=== PATIENT | female | born 1980 | race Caucasian/White ===

== ENCOUNTER 2018-06-12 20:23 | Emergency (ER) | payer MEDICAID, SELFPAY ==
[2018-06-12 20:24] VITALS: BP 150/97; PULSE 106; RESP 22; TEMP 36.9; O2SAT 95; BMI 33.2
[2018-06-12] MEDS: 0.9% Normal Saline 1,000 ML 1000 ML IV (20:54)
[2018-06-12] MEDS: Ketorolac 30 MG/ML Syringe IV (20:54)
[2018-06-12 21:06] LABS: Absolute Lymphocyte Count 1.75 X10^3/ul (0.83-4.51); Absolute Neutrophil Count 3.8 X10^3/uL (2.0-7.7); Basophil# 0.02 X10^3/uL; Basophil% 0.3 % (0-1); Eosinophil# 0.05 X10^3/uL; Eosinophils% 0.8 % (0-5); Hematocrit 33.5 % (37-47); Hemoglobin 11.4 g/dl (12.0-15.0); Lymphocyte # 1.75 X10^3/ul (4.0); Lymphocyte % 29.7 % (19-41); Mean Corpuscular Hgb 29.9 pg (27.0-32.0); Mean Corpuscular Volume 87.9 fL (81-99); Mean Platelet Vol. 9.1 fl (6.2-12.0); Monocyte# 0.22 X10^3/uL; Monocyte% 3.7 % (0-10); Neutrophil # 3.83 X10^3/uL (2.7-7.7); Platelet Count 254 K/mm3 (150-450); RBC Distribution Width CV 12.4 % (11.6-14.6); RBC Distribution Width SD 38.6 fl (35.1-43.9); Red Blood Count 3.81 M/mm3 (4.2-5.4); White Blood Count 5.9 K/mm3 (4.4-11.0)
[2018-06-12 21:07] LABS: POSITIVE COUNT NO; POSITIVE DIFFERENTIAL NO; POSITIVE MORPHOLOGY NO
[2018-06-12 21:16] LABS: Anion Gap 8 (5-15); BUN 16 mg/dL (7-18); BUN/Creat Ratio 16.6 RATIO (10-20); Calcium,Total 9.4 mg/dL (8.5-10.1); Chloride 105 mmol/L (98-107); Creatinine, Serum 0.96 mg/dL (0.55-1.02); EST Glomerular Filtration Rate 70 mL/min (>60); Est Glom Filt Rate - Afr Amer 84 mL/min (>60); Estimated Creatinine Clearance 69.96 ml/min; Glucose 102 mg/dL (74-106); Potassium 3.9 mmol/L (3.5-5.1); Sodium Level 141 mmol/L (136-145)
--- NOTE | 2018-06-12 21:19 | ED.VISSUMM ---
- ER Visit Summary Date of Service: 06/12/18 Chief Complaint: Left flank pain History of Present Illness: The patient is a 37 F who presents with left flank pain that began today. Patient states the pain is localized to the left flank area. Patient denies any radiation of the pain. Patient admits to some nausea but denies any vomiting. Patient denies any dysuria or hematuria. Patient states nothing seems to make the pain better or worse. Patient does admit to some shortness of breath due to the pain. Patient denies any chest pain. Patient denies any diarrhea or constipation. Patient denies any abnormal vaginal bleeding or discharge. Physical Examination: Vital signs are stable. Patient is afebrile. Patient is in no acute distress. Oral mucosa is pink and moist. Neck is supple. Trachea is midline. There is no JVD noted. Heart was regular rate and rhythm. Lungs are clear and equal bilateral. There is good respiratory effort noted. Abdomen is soft. Bowel sounds are normal. There is some left flank tenderness and left CVA tenderness. There is no rebound or guarding noted. Cranial nerves II through XII are intact. There are no focal motor or sensory deficits noted. The remaining physical exam is within normal limits. Test Results: CBC, basic metabolic profile, and urinalysis were obtained. There were greater than 100 red blood cells with occult blood of 250. CT scan of the flank was obtained. There is a 2 mm no stone of the left distal ureter with mild hydronephrosis and hydroureter. Emergency Department Course and Treatment: She was given IV fluids and Toradol here. Patient felt better on reevaluation. Patient was instructed to follow-up with her primary care physician in 5-7 days. Patient was instructed to drink plenty of fluids. Patient understood and was agreeable with the plan. All questions were answered. Disposition: Discharge home Impression: Left ureteral calculus This note was generated with eJamming dictation software. It may contain incorrect words, spelling, and punctuation that were not noted in review of the chart prior to signing ED Disposition - Plan for ED Patient: Disposition: Home or Assisted Living Chief Complaint: Flank Pain Diagnosis: Left ureteral calculus Instructions: ED Stone Renal W Colic Prescriptions: Naproxen [Naprosyn] 500 mg PO BID PRN #20 tab Referrals: Care Physician,No Primary [Primary Care Provider] -
[2018-06-12 21:39] LABS: Color, Urine Yellow (Yellow); Glucose, Dipstick Normal (Normal); Ketone-Dipstick Negative (Negative); Leukocyte Esterase-Dipstick 25 /ul (Negative); Nitrite-Dipstick Negative (Negative); Occult Blood-Urine 250 /ul (Negative); Protein-Dipstick 30 mg/dl (Negative); Urine Bilirubin Dipstick Negative (Negative); Urine Clarity Clear (Clear); Urine Urobilinogen Normal (Normal)
[2018-06-12 21:40] LABS: Internal QC Validated? YES +Cl - CLEAR BKGD
[2018-06-12 21:41] LABS: Pregnancy, Urine Negative Negative
[2018-06-12 21:46] LABS: Bacteria 1+ /hpf (None Seen); Red Blood Cells-Urine > 100 SEEN /hpf (0-5); Squamous Epithelial Cells - UA 5-10 SEEN /hpf (5-10); White Blood Cells 5-10 SEEN /hpf (0-5)
[2018-06-12 21:47] LABS: Mucous, Urine 1+ /hpf (<or=2+)
[2018-06-12] MEDS: Ibuprofen 600 MG Tablet PO (22:22)
[2018-06-12 23:10] VITALS: BP 129/73; PULSE 64; RESP 15; O2SAT 98
--- NOTE | 2018-06-12 23:10 | ED.RN ---
pt given written and verbal discharge instructions. pt given and educated on strainer use and home going prescriptions. pt denies any further questions and dresses self. this rn contacted [facility] service at pt request. pt in waiting room to await a ride.
== END 2018-06-12 23:14 | disposition home or self-care (01) ==
PROVIDERS: Emergency Provider Emergency Medicine
DX: N13.2 Hydronephrosis with renal and ureteral calculous obstruction (principal)
CPT/HCPCS: 74176; 80048; 81001; 81025; 85025; 96361; 96374; 99284; J7030; A4216

== ENCOUNTER 2019-01-07 19:09 | Emergency (ER) | payer MEDICAID, SELFPAY ==
[2018-08-31 08:45] VITALS: BMI 33.0
[2019-01-07 19:10] VITALS: BP 156/90; PULSE 93; RESP 16; TEMP 36.5; O2SAT 99; BMI 33.3
--- NOTE | 2019-01-07 19:33 | ED.VISSUMM ---
- ER Visit Summary Date of Service: 01/07/19 Chief Complaint: [] Right paracervical neck pain rating the shoulder for years History of Present Illness: The patient is a 38 F [] reports in 2008 she suffered a neck injury possibly neck fracture she I think was describing something like a halo She is having a pain from the right paracervical neck into the right shoulder, the pain seems to be worse her last few days there is no numbness weakness paresthesias other problems, there is been not recurrent trauma, no symptoms to the left, she she has been taking Tylenol for the pain presents for evaluation Physical Examination: [] General, no distress resting comfortably HEENT is generally unremarkable The neck is supple no adenopathy has a vague pain to the right paracervical area there is really no midline pain she has full range of motion of her neck Cardiovascular, regular rate and rhythm Lungs, clear bilateral Abdomen, soft nontender Extremities, no clubbing cyanosis or edema motion of the right upper extremity the pain goes from the neck across the anterior shoulder into the deltoid region her hand function is normal pulses are normal strength appears normal sensation appears normal Neurologic, awake alert answering questions appropriately moving all 4 extremities Test Results: [] Emergency Department Course and Treatment: [] This is a long-standing condition for the patient and I have explained this to her explained the concept of arthritis other conditions affecting the cervical spine and the need to follow-up with spine surgery I recommend she follow-up with this surgeons who she saw for her injury in 2008 she is not sure if she can find those referrals, she was started on Naprosyn 500 twice daily she will be referred to [place] [facility] and/or [facility] spine service in [facility] for change in symptoms Treatment Plan: [] Disposition: [] Home stable Impression: [] Paracervical neck pain acute recurrent 2008 This note was generated with Topio dictation software. It may contain incorrect words, spelling, and punctuation that were not noted in review of the chart prior to signing ED Disposition - Plan for ED Patient: Referrals: [facility] Doctor,Out of [Primary Care Provider] -
--- NOTE | 2019-01-07 19:37 | ED.DCSUM_ITS ---
- ER Visit Summary Date of Service: 01/07/19 Chief Complaint: [] Right paracervical neck pain rating the shoulder for years History of Present Illness: The patient is a 38 F [] reports in 2008 she suffered a neck injury possibly neck fracture she I think was describing something like a halo She is having a pain from the right paracervical neck into the right shoulder, the pain seems to be worse her last few days there is no numbness weakness paresthesias other problems, there is been not recurrent trauma, no symptoms to the left, she she has been taking Tylenol for the pain presents for evaluation Physical Examination: [] General, no distress resting comfortably HEENT is generally unremarkable The neck is supple no adenopathy has a vague pain to the right paracervical area there is really no midline pain she has full range of motion of her neck Cardiovascular, regular rate and rhythm Lungs, clear bilateral Abdomen, soft nontender Extremities, no clubbing cyanosis or edema motion of the right upper extremity the pain goes from the neck across the anterior shoulder into the deltoid region her hand function is normal pulses are normal strength appears normal sensation appears normal Neurologic, awake alert answering questions appropriately moving all 4 extremities Test Results: [] Emergency Department Course and Treatment: [] This is a long-standing condition for the patient and I have explained this to her explained the concept of arthritis other conditions affecting the cervical spine and the need to follow- up with spine surgery I recommend she follow-up with this surgeons who she saw for her injury in 2008 she is not sure if she can find those referrals, she was started on Naprosyn 500 twice daily she will be referred to [place] [facility] and/or [facility] spine service in [facility] for change in symptoms Treatment Plan: [] Disposition: [] Home stable Impression: [] Paracervical neck pain acute recurrent 2008 This note was generated with Ext[employer] Reach (formerly [employer]) dictation software. It may contain incorrect words, spelling, and punctuation that were not noted in review of the chart prior to signing ED Disposition - Plan for ED Patient: Referrals: [facility] Doctor,Out of [Primary Care Provider] -
--- NOTE | 2019-01-07 19:37 | ED.DEP ---
ED Disposition - Plan for ED Patient: Instructions: ED Cervical Radiculopathy Prescriptions: Naproxen [Naprosyn] 500 mg PO BID PRN #20 tab Referrals: [facility] Doctor,Out of [Primary Care Provider] - Juan Rey MD [STAFF PHYSICIAN] - Additional Instructions: You might also want to consider following up with [facility] orthopedics spine service in [facility], or [facility] spine service
--- NOTE | 2019-01-07 19:39 | DCINST.ED_ITS ---
ED Disposition - Plan for ED Patient: Instructions: ED Cervical Radiculopathy Prescriptions: Naproxen [Naprosyn] 500 mg PO BID PRN #20 tab Referrals: [facility] Doctor,Out of [Primary Care Provider] - Juan Rey MD [STAFF PHYSICIAN] - Additional Instructions: You might also want to consider following up with [facility] orthopedics spine service in [facility], or [facility] spine service
[2019-01-07 19:53] VITALS: BP 156/90; PULSE 93; RESP 16; O2SAT 99
== END 2019-01-07 19:54 | disposition home or self-care (01) ==
PROVIDERS: Emergency Provider Emergency Medicine
DX: M54.12 Radiculopathy, cervical region (principal)
CPT/HCPCS: 99282

== ENCOUNTER 2019-11-17 10:30 | Emergency (ER) | payer MEDICAID, SELFPAY ==
[2019-11-17 10:32] VITALS: BP 158/114; PULSE 100; RESP 17; TEMP 37.4; O2SAT 97; BMI 33.1
--- NOTE | 2019-11-17 10:47 | ED.VIS.GEN ---
History of Present Illness Chief Complaint: Headache Informant: Patient, Family Onset: Days - 3 Timing: Continuous Current Severity: Moderate Maximum Severity: Moderate Narrative: Patient presents with a headache that is chronic and recurrent for the past 3 days. She has a history of migraines and this feels the same as gradual onset. She also has myalgias and generalized weakness however she is able to ambulate. She tells me she has no reported fevers although she has a low-grade temperature in the ED. She denies any difficulty breathing, she has upper respiratory congestion and a cough that is nonproductive. She has no chest pain she has no dysuria or hematuria she has no flank pain she has no rash she has no neck pain or stiffness. Past Medical History - Allergies and Home Meds Allergies/Adverse Reactions: Allergies latex Allergy (Verified 11/17/19 10:31) Hives hydrocodone bitartrate [From Vicodin] Adverse Reaction (Verified 11/17/19 10:31) Nausea Primary Care Physician: Care Physician,No Primary [Primary Care Provider] - Past Medical History: - - Hypertension Lives: With Family Smoking Status: Former smoker Review of Systems All systems negative except as indicated General: Denies: Sweats Eyes: Reports: - - She does report photophobia which is normal with her migraines. Denies: Visual changes - bilaterally ENT: Reports: Rhinorrhea Cardiovascular: Denies: Chest pain, Palpitations Respiratory: Reports: Cough. Denies: Dyspnea, Sputum Gastrointestinal: Reports: Nausea. Denies: Abdominal pain, Vomiting, Diarrhea Genitourinary: Denies: Dysuria, Hematuria Musculoskeletal: Reports: Myalgias. Denies: Neck pain, Swelling, Extremity Pain Skin: Denies: Rash Neurological: Reports: Headache, - - No focal weakness Hematologic: Denies: Easy bruising Physical Exam Vital Signs/Narrative: Vital Signs Temp Pulse Resp BP Pulse Ox 11/17/19 10:32 99.4 F H 100 17 158/114 H 97 General: Well nourished, Well developed, - - She appears in some distress Head: Normocephalic, Atraumatic Eyes: Perrl ENT: Moist mucous membranes, - - Some upper airway congestion and rhinorrhea. Negative for: Sinus tenderness Neck: Supple Cardiovascular: Regular rhythm, No murmurs, Tachycardia Respiratory: No distress, CTA bilaterally Abdomen: Soft, Nontender Back: Nontender, Normal Inspection. Negative for: CVA tenderness Extremities: Nontender, No edema. Negative for: Tenderness, Edema Skin: Normal color, No rash Neurological: Alert, Oriented x3, Cranial nerves II-XII grossly intact, Normal Strength, Normal Sensation. Negative for: Confused, Disoriented Psychological: - - Slightly anxious Diagnostic/Tx/Re-eval - Medical Decision Making Patient has a normal ED work-up she is given IV fluids, Reglan Toradol and Benadryl she is significantly improved. She will be discharged with reassurance ED Disposition - Plan for ED Patient: Disposition: Home or Assisted Living Diagnosis: Headache Instructions: HEADACHE, Unspecified Referrals: Care Physician,No Primary [Primary Care Provider] - 3-5 Days
[2019-11-17] MEDS: 0.9% Normal Saline 1,000 ML 999 ML IV (11:01)
[2019-11-17] MEDS: DiphenhydrAMINE 50 MG/ML Syringe 25 MG IV (11:02)
[2019-11-17] MEDS: Ketorolac 30 MG/ML Syringe IV (11:03)
[2019-11-17] MEDS: Metoclopramide 10 MG/2 ML Vial IV (11:04)
[2019-11-17 11:09] LABS: Absolute Lymphocyte Count 0.97 X10^3/uL (0.83-4.51); Absolute Neutrophil Count 3.4 X10^3/uL (2.0-7.7); Basophil# 0.01 X10^3/uL; Basophil% 0.2 % (0-1); Eosinophil# 0.05 X10^3/uL; Eosinophils% 1.1 % (0-5); Hematocrit 33.6 % (37-47); Hemoglobin 10.4 g/dL (12.0-15.0); Lymphocyte # 0.97 X10^3/ul (4.0); Lymphocyte % 20.7 % (19-41); Mean Corpuscular Hgb 25.8 pg (27.0-32.0); Mean Corpuscular Volume 83.4 fL (81-99); Mean Platelet Vol. 9.5 fl (6.2-12.0); Monocyte# 0.24 X10^3/uL; Monocyte% 5.1 % (0-10); NRBC Flagged by Analyzer 0 % (0-5); Neutrophil # 3.37 X10^3/uL (2.7-7.7); Platelet Count 249 K/mm3 (150-450); RBC Distribution Width CV 12.9 % (11.6-14.6); RBC Distribution Width SD 38.8 fl (35.1-43.9); Red Blood Count 4.03 M/mm3 (4.2-5.4); White Blood Count 4.7 K/mm3 (4.4-11.0)
[2019-11-17 11:28] LABS: ALB/GLOB Ratio 1.1 RATIO (0.9-2.4); AST(SGOT) 12 U/L (15-37); Alanine Aminotransfer ALT/SGPT 36 U/L (13-56); Alkaline Phosphatase 68 U/L (45-117); Anion Gap 5 (5-15); BUN 12 mg/dL (7-18); BUN/Creat Ratio 12.2 RATIO (10-20); Calcium,Total 8.8 mg/dL (8.5-10.1); Chloride 107 mmol/L (98-107); Creatinine, Serum 0.99 mg/dL (0.55-1.02); EST Glomerular Filtration Rate 67 mL/min (>60); Est Glom Filt Rate - Afr Amer 81 mL/min (>60); Estimated Creatinine Clearance 67.19 ml/min; Globulin 3.6 g/dL (2.2-4.2); Glucose 91 mg/dL (74-106); Potassium 3.9 mmol/L (3.5-5.1); Protein, Total 7.6 g/dL (6.4-8.2); Sodium Level 140 mmol/L (136-145)
[2019-11-17 11:33] LABS: CPK Total, Creatine Kinase 107 U/L (26-192)
[2019-11-17 11:52] LABS: Mucous, Urine 0 SEEN /hpf (<or=2+); White Blood Cells 0 SEEN /hpf (0-5)
[2019-11-17 12:02] LABS: Color, Urine Yellow (Yellow); Glucose, Dipstick Normal (Normal); Ketone-Dipstick Negative (Negative); Leukocyte Esterase-Dipstick Negative /ul (Negative); Nitrite-Dipstick Negative (Negative); Occult Blood-Urine 150 /ul (Negative); Protein-Dipstick Negative (Negative); Specific Gravity, Urine 1.015 (1.002-1.030); Urine Bilirubin Dipstick Negative (Negative); Urine Clarity Sl. Cloudy (Clear); Urine Urobilinogen Normal (Normal); Urine pH 6.5 (5.0 - 8.0)
[2019-11-17 12:19] LABS: Bacteria RARE /hpf (None Seen); Red Blood Cells-Urine 0-5 SEEN /hpf (0-5); Squamous Epithelial Cells - UA 0-5 SEEN /hpf (5-10)
== END 2019-11-17 13:05 | disposition home or self-care (01) ==
PROVIDERS: Emergency Provider Emergency Medicine
DX: R51 Headache (principal); I10 Essential (primary) hypertension; Z87.891 Personal history of nicotine dependence; Z88.5 Allergy status to narcotic agent; Z91.040 Latex allergy status; M79.10 Myalgia, unspecified site; R53.1 Weakness
CPT/HCPCS: 80053; 81001; 82550; 85025; 87804; 96361; 96374; 96375; 99284; J7030; A4216

== ENCOUNTER 2021-02-18 12:46 | Emergency (ER) | payer MEDICAID, SELFPAY ==
[2021-02-18 12:47] VITALS: BP 165/110; PULSE 129; RESP 18; TEMP 37.8; O2SAT 95; BMI 37.1
[2021-02-18 12:50] VITALS: BP 165/110; PULSE 128; RESP 17; TEMP 37.8; O2SAT 96
--- NOTE | 2021-02-18 12:52 | RAD_ITS ---
STUDY: X-RAY CHEST REASON FOR EXAM: Female, 40 years old. Chest pain and cough TECHNIQUE: Single AP portable view of the chest. COMPARISON: 06/21/2016 FINDINGS: EKG leads overlie the chest The lungs are clear and expanded. There is no demonstrated pleural abnormality. Normal size heart. Normal mediastinum and osbaldo. Normal visualized pulmonary arteries. Normal visualized aortic arch and descending thoracic aorta. Normal visualized thoracic spine. Normal visualized ribs, clavicles, and shoulders. There is no demonstrated abnormality of the visualized soft tissue structures of the upper abdomen. RAD/Chest 1 View IMPRESSION: Normal x-ray examination of the chest. Electronically Signed: Adarsh Braun MD at 14:35 EDT , Service support ,
--- NOTE | 2021-02-18 12:52 | EKG12_ITS ---
Test Reason : WEAKNESS Blood Pressure : / mmHG Vent. Rate : 107 BPM Atrial Rate : 107 BPM P-R Int : 128 ms QRS Dur : 080 ms QT Int : 320 ms P-R-T Axes : 040 020 000 degrees QTc Int : 427 ms Sinus tachycardia Otherwise normal ECG Confirmed by CHIKIS ROSE, JASON ([id number]), pictures editor MALISSA EDWARD ([id number]) on 02/21/2021 11:29:26 A M Referred By: [facility] Confirmed By:MACARIO DIOP MD
--- NOTE | 2021-02-18 13:03 | CT_ITS ---
STUDY: CT ABDOMEN AND PELVIS WITHOUT CONTRAST REASON FOR EXAM: Female, 40 years old. Flank pain RADIATION DOSAGE (If Supplied By Facility): CTDIvol = ( 14.21 ) mGy, DLP = ( 795.42 ) mGycm TECHNIQUE: Transaxial images were obtained from the dome of the diaphragm to the symphysis pubis without oral contrast, and without intravenous contrast. Sagittal and coronal images were reconstructed. Individualized dose optimization techniques were used for this CT. COMPARISON: None. FINDINGS: Lung bases show patchy interstitial and airspace opacifications in both lung bases, this pattern of opacification can be seen with Covid pneumonia, but also with multifocal pneumonitis. The visualized portions of the heart are within normal limits. There is decreased attenuation of the liver consistent with steatosis. There is a solitary gallstone. Normal spleen. Normal pancreas. Normal bilateral adrenal glands. No obstructive uropathy, there are punctate nonobstructing left renal stones. Normal visualized stomach. Normal small intestine. Retained stool noted throughout the colon. There is non-visualization of the appendix. Normal abdominal aorta. Normal inferior vena cava. Normal retroperitoneum. Normal urinary bladder. Normal-appearing uterus. No suspicious adnexal mass or free fluid Normal abdominal wall. Normal osseous structures. CT/Abdomen/Pelvis without Cont IMPRESSION: Fatty liver, no discrete lesion Cholelithiasis Bilateral nephrolithiasis Patchy interstitial and airspace opacifications in both lung bases, differential as described above. Appendix not visualized Electronically Signed: Adarsh Braun MD at 14:59 EDT , Service support ,
--- NOTE | 2021-02-18 13:12 | EX.ED.DYSGE1 ---
HPI History of Present Illness Chief Complaint: Weakness Narrative Narrative: The patient has complaints of cough body aches generalized fatigue and right flank pain all this began a few days ago and has persisted she presents for evaluation she indicates she has history of distant kidney stone she had no exposure to coronavirus the cough is dry not nonproductive but harsh she is not been around and who is been ill no head neck chest or abdominal pain she feels if her urine output is decreased due to poor p.o. intake, no abdominal pain no diarrhea constipation PFSH PFSH Home Medications dextroamphetamine-amphetamine [Adderall 10 mg Tablet] 20 mg PO DAILY 06/21/16 [History Last Taken Unknown] albuterol sulfate [Ventolin HFA] 1 - 2 puff INHALATION Q4H PRN PRN 10 Days g 02/18/21 [Rx Last Taken Unknown] hydrocodone-acetaminophen 1 tab PO Q4H PRN PRN 3 Days #10 tablet 02/18/21 [Rx Last Taken Unknown] Allergy/AdvReac Type Severity Reaction Status Date / Time latex Allergy Hives Verified 02/18/21 12:51 hydrocodone bitartrate AdvReac Nausea Verified 02/18/21 12:51 [From Vicodin] Family History (Updated 02/18/21 @ 15:[address] Rohini Campbell MD) Other COVID-19 Social History (Updated 08/31/18 @ 09:56 by Juan MOFFETT, ZUHAIR) Smoking Status: Never smoker ROS ROS ED Constitutional Constitutional ED: Reports chills, subjective, sweats and other; Denies fever(s) or weight loss Eyes Eyes: Denies blurry vision or change in vision ENT ENT ED: Denies ear pain Cardiovascular Cardiovascular: Denies chest pain or palpitations Respiratory/Chest Respiratory/Chest: Reports cough; Denies dyspnea Gastrointestinal Gastrointestinal: Denies abdominal pain, nausea or vomiting Genitourinary Genitourinary ED: Denies dysuria or hematuria Musculoskeletal Musculoskeletal: Denies arthralgias or myalgias Integumentary Reports rash; Denies abscess Neurologic Neurologic: Denies weakness Psychiatric Psychiatric: Denies anxiety or depression Endocrine Endocrinology: Denies polydipsia or polyuria Allergic/Immunologic Allergic/Immunologic ED: Denies urticaria EXAM Physical Exam Narrative Exam Narrative: She is in no distress her heart rate is noted to be about 120 her temperature is 100 she is awake and alert answering questions appropriately HEENT exam is unremarkable neck supple lungs clear heart tones normal abdomen soft nontender moving all 4 extremities the very vague right flank pain Const Vital Signs: 02/18/21 12:47 02/18/21 12:50 02/18/21 13:50 Temperature 100.0 F H 100.0 F H 99.8 F H Temperature Source Oral Oral Oral Pulse Rate 129 H 128 H 103 H Respiratory Rate 18 17 20 H Respiratory Effort Normal Non-Labored Respiratory Pattern Normal Blood Pressure 165/110 H 165/110 H 132/93 H Blood Pressure Mean 128 128 106 Pulse Ox 95 96 96 Oxygen Delivery Method Room Air Room Air Room Air 02/18/21 15:00 Temperature Temperature Source Pulse Rate 94 Respiratory Rate 23 H Respiratory Effort Respiratory Pattern Blood Pressure 132/93 H Blood Pressure Mean 106 Pulse Ox 96 Oxygen Delivery Method Room Air Positive well developed General Appearance ED: well developed HEENT Reports normocephalic Negative for trauma Eyes EOMs intact bilaterally Neck supple Chest Wall inspection of chest normal Resp normal respiratory effort Cardio regular rate GI non-tender and non-distended Back/Spine Back/Spine Narrative: unremarkable Extremity normal to inspection Neuro oriented x3 and CN's II-XII intact bilaterally Sensorium / Orientation: alert Psych mental status grossly normal Skin no rashes or lesions noted MDM MDM MDM Narrative Medical decision making narrative: Given all the above ED screen evaluation fluids, patient's EKG shows a sinus tachycardia rate of 107 no acute injury, the patient's 1 view chest x-ray to my review is unremarkable, radiology concurs, abdominal flank CT per radiology shows really nothing acute there are some subtle infiltrates bibasilar levels in the lungs, consistent with Covid, the patient's Covid test was positive again her screening labs are otherwise unremarkable she is received IV fluids her heart rate now is about 90 her pulse ox is 96 on room air discussed all the above with her she is safe for outpatient discharge she can self isolate she will take meds for the body aches force fluids follow-up with outpatient providers and return for change in symptoms of any kind and she is comfortable with this plan Home stable Final impression COVID-19 pneumonia infection Lab Data Labs: Laboratory Results - last 24 hr 02/18/21 02/18/21 02/18/21 12:57 12:57 13:30 WBC 2.6 L RBC 4.63 Hgb 11.1 L Hct 36.4 L MCV 78.6 L MCH 24.0 L MCHC 30.5 L RDW Std Deviation 43.9 RDW Coeff of Theo 15.5 H Plt Count 218 MPV 9.7 Immature Gran % (Auto) 0.400 Neut % (Auto) 68.9 Lymph % (Auto) 21.6 Willacy % (Auto) 8.7 Eos % (Auto) 0.4 Baso % (Auto) 0.0 Absolute Neuts (auto) 1.8 L Absolute Lymphs (auto) 0.57 L Nucleated RBC % 0 Differential Comment SCANNED Diff Path Review May foll Sodium 135 L Potassium 4.0 Chloride 103 Carbon Dioxide 25.0 Anion Gap 7 BUN 13 Creatinine 1.10 H Estim Creat Clear Calc 59.29 Est GFR (MDRD) Af Amer 71 Est GFR (MDRD) Non-Af 59 L BUN/Creatinine Ratio 11.8 Glucose 131 H Lactic Acid Calcium 8.8 Total Bilirubin 0.30 AST 21 ALT 51 Alkaline Phosphatase 77 Troponin I < 0.015 Total Protein 7.9 Albumin 3.7 Globulin 4.2 Albumin/Globulin Ratio 0.9 Serum , Qual NEGATIVE Urine Color Urine Clarity Urine pH Ur Specific [place] Urine Protein Urine Glucose (UA) Urine Ketones Urine Occult Blood Urine Nitrite Urine Bilirubin Urine Urobilinogen Ur Leukocyte Esterase Urine RBC Urine WBC Ur Squamous Epith Cells Urine Bacteria Urine Mucus 02/18/21 02/18/21 13:30 15:00 WBC RBC Hgb Hct MCV MCH MCHC RDW Std Deviation RDW Coeff of Theo Plt Count MPV Immature Gran % (Auto) Neut % (Auto) Lymph % (Auto) Will[place] % (Auto) Eos % (Auto) Baso % (Auto) Absolute Neuts (auto) Absolute Lymphs (auto) Nucleated RBC % Differential Comment Diff Path Review Sodium Potassium Chloride Carbon Dioxide Anion Gap BUN Creatinine Estim Creat Clear Calc Est GFR (MDRD) Af Amer Est GFR (MDRD) Non-Af BUN/Creatinine Ratio Glucose Lactic Acid 1.9 Calcium Total Bilirubin AST ALT Alkaline Phosphatase Troponin I Total Protein Albumin Globulin Albumin/Globulin Ratio Serum , Qual Urine Color Yellow Urine Clarity Clear Urine pH 5.0 Ur Specific [place] 1.020 Urine Protein 30 H Urine Glucose (UA) Normal Urine Ketones Negative Urine Occult Blood 250 H Urine Nitrite Negative Urine Bilirubin Negative Urine Urobilinogen Normal Ur Leukocyte Esterase 25 H Urine RBC 0-5 SEEN Urine WBC 0-5 SEEN Ur Squamous Epith Cells 5-10 SEEN Urine Bacteria 4+ Urine Mucus 0 SEEN Radiography Diagnostic Testing: Radiology Impression Chest X-Ray 02/18/21 12:52 IMPRESSION: Normal x-ray examination of the chest. Electronically Signed: Adarsh Braun MD at 14:35 EDT , Service support , Abdomen/Pelvis CT 02/18/21 13:03 IMPRESSION: Fatty liver, no discrete lesion Cholelithiasis Bilateral nephrolithiasis Patchy interstitial and airspace opacifications in both lung bases, differential as described above. Appendix not visualized Electronically Signed: Adarsh Braun MD at 14:59 EDT , Service support , Discharge Plan Triage Chief Complaint: Weakness ED Provider: Rohini Campbell Dx/Rx/DC Orders Clinical Impression: COVID-19 Prescriptions: New hydrocodone-acetaminophen 5-325 mg tablet 1 tab PO Q4H PRN PRN (Reason: Pain) 3 Days Qty: 10 RF: 0 albuterol sulfate [Ventolin HFA] 90 mcg/actuation HFA aerosol inhaler 1 - 2 puff inhalation Q4H PRN PRN (Reason: Wheezing) 10 Days RF: 0 No Action dextroamphetamine-amphetamine [Adderall] 10 MG tablet 20 mg PO DAILY RF: 0 Primary Care Provider: Care Physician,No Primary Referrals: Care Physician,No Primary [Primary Care Provider] -
[2021-02-18 13:17] LABS: Absolute Lymphocyte Count 0.57 X10^3/uL (0.83-4.51); Absolute Neutrophil Count 1.8 X10^3/uL (2.0-7.7); Eosinophil# 0.01 X10^3/uL; Eosinophils% 0.4 % (0-5); Hematocrit 36.4 % (37-47); Hemoglobin 11.1 g/dL (12.0-15.0); Lymphocyte # 0.57 X10^3/ul (0.83-4.51); Lymphocyte % 21.6 % (19-41); Mean Corp Hgb Conc 30.5 g/dL (32-36); Mean Corpuscular Volume 78.6 fL (81-99); Mean Platelet Vol. 9.7 fl (6.2-12.0); Monocyte# 0.23 X10^3/uL; Monocyte% 8.7 % (0-10); NRBC Flagged by Analyzer 0 % (0-5); Neutrophil # 1.82 X10^3/uL (2.7-7.7); Neutrophil % 68.9 % (47-70); POSITIVE DIFFERENTIAL YES; Platelet Count 218 K/mm3 (150-450); RBC Distribution Width CV 15.5 % (11.6-14.6); RBC Distribution Width SD 43.9 fl (35.1-43.9); Red Blood Count 4.63 M/mm3 (4.2-5.4); White Blood Count 2.6 K/mm3 (4.4-11.0)
[2021-02-18 13:22] LABS: Differential Indicated SCAN CRITERIA MET
[2021-02-18 13:32] LABS: Differential Comment SCANNED
[2021-02-18 13:34] LABS: ALB/GLOB Ratio 0.9 RATIO (0.9-2.4); AST(SGOT) 21 U/L (15-37); Alanine Aminotransfer ALT/SGPT 51 U/L (13-56); Albumin, Serum 3.7 g/dL (3.2-5.0); Alkaline Phosphatase 77 U/L (45-117); Anion Gap 7 (5-15); BUN 13 mg/dL (7-18); BUN/Creat Ratio 11.8 RATIO (10-20); Calcium,Total 8.8 mg/dL (8.5-10.1); Chloride 103 mmol/L (98-107); EST Glomerular Filtration Rate 59 mL/min (>60); Est Glom Filt Rate - Afr Amer 71 mL/min (>60); Estimated Creatinine Clearance 59.29 ml/min; Globulin 4.2 g/dL (2.2-4.2); Glucose 131 mg/dL (74-106); Protein, Total 7.9 g/dL (6.4-8.2); Sodium Level 135 mmol/L (136-145)
[2021-02-18] MEDS: 0.9% Normal Saline 1,000 ML 1000 ML IV ×2 (13:49→14:50)
[2021-02-18] MEDS: Acetaminophen 500 MG Tablet 1000 MG PO (13:49)
[2021-02-18 13:50] VITALS: BP 132/93; PULSE 103; RESP 20; TEMP 37.7; O2SAT 96
[2021-02-18 14:13] LABS: Internal QC Validated? YES +Cl - CLEAR BKGD; Pregnancy, Serum, hCG Quali. NEGATIVE Negative
[2021-02-18 14:41] LABS: Lactic Acid 1.9 mmol/L (0.4-1.9)
[2021-02-18 15:00] VITALS: BP 132/93; PULSE 94; RESP 23; O2SAT 96
[2021-02-18 15:15] LABS: Mucous, Urine 0 SEEN /hpf (<or=2+)
[2021-02-18 15:22] LABS: Color, Urine Yellow (Yellow); Glucose, Dipstick Normal (Normal); Ketone-Dipstick Negative (Negative); Leukocyte Esterase-Dipstick 25 /ul (Negative); Nitrite-Dipstick Negative (Negative); Occult Blood-Urine 250 /ul (Negative); Protein-Dipstick 30 mg/dl (Negative); Urine Bilirubin Dipstick Negative (Negative); Urine Clarity Clear (Clear); Urine Urobilinogen Normal (Normal)
[2021-02-18 15:27] LABS: Red Blood Cells-Urine 0-5 SEEN /hpf (0-5); Squamous Epithelial Cells - UA 5-10 SEEN /hpf (5-10); White Blood Cells 0-5 SEEN /hpf (0-5)
[2021-02-18 15:28] LABS: Bacteria 4+ /hpf (None Seen)
[2021-02-18] MEDS: Morphine 4 MG/ML Syringe IV (15:57)
[2021-02-18] MEDS: Ondansetron 4 MG/2 ML Vial IV (15:58)
[2021-02-18] MEDS: Ketorolac 30 MG/ML Syringe IV (15:58)
[2021-02-18 16:00] VITALS: BP 146/73; PULSE 88; RESP 15; TEMP 37; O2SAT 95
[2021-02-18 16:28] VITALS: BP 146/72; PULSE 90; RESP 16; O2SAT 94
[2021-02-19 13:23] LABS: Pathologist Review Reviewed
== END 2021-02-18 16:30 | disposition home or self-care (01) ==
LOC: ED 13:21
PROVIDERS: Emergency Provider Emergency Medicine
DX: U07.1 COVID-19 (principal); K76.0 Fatty (change of) liver, not elsewhere classified; K80.20 Calculus of gallbladder without cholecystitis without obstruction; N20.0 Calculus of kidney; Z87.442 Personal history of urinary calculi; Z79.899 Other long term (current) drug therapy
CPT/HCPCS: 71045; 74176; 80053; 81001; 83605; 84484; 84703; 85025; 87086; 87088; 87426; 93005; 96361; 96374; 96375; 99285; J7030; A4216; J2405

== ENCOUNTER 2021-07-08 09:57 | Emergency (ER) | payer MEDICAID, SELFPAY ==
[2021-07-08 09:59] VITALS: BP 147/98; PULSE 88; RESP 14; TEMP 36.2; O2SAT 100; BMI 35.1
--- NOTE | 2021-07-08 10:48 | CT_ITS ---
EXAM: CT CERVICAL SPINE WITHOUT INTRAVENOUS CONTRAST : 1980 CLINICAL INDICATION: neck pain TECHNIQUE: Helically acquired images were obtained of the cervical spine without intravenous contrast. 2D reformatted images were reviewed. This CT exam was performed using one or more of the following dose reduction techniques: automated exposure control, adjustment of the mA and/or kV according to patient size, and/or use of iterative reconstruction technique. This report was created using readfy report generation technology. COMPARISON: C-spine radiographs 11/22/2012 FINDINGS: VERTEBRAE: Straightening of the cervical lordosis noted consistent with muscle spasm. No fracture. No traumatic subluxation. No discrete lytic or blastic abnormality. Normal craniocervical junction and cervicothoracic junction. DISCS/SPINAL CANAL/NEURAL FORAMINA: Unremarkable. Disc heights are preserved. No critical stenosis. SOFT TISSUES: Unremarkable. No prevertebral soft tissue swelling. LYMPH NODES: Unremarkable. No cervical adenopathy. LUNG APICES: Unremarkable as visualized. Clear. CT/Spine Cervical without Contras IMPRESSION: 1. No acute bone or joint abnormality. 2. Intact spinal canal and neural foramina. Individualized dose optimization techniques were used for this CT. at 1200 Reported and signed by: Qamar Medley MD Electronically Signed: Qamar Medley MD at 11:59 EDT Tel , Service support ,
--- NOTE | 2021-07-08 10:48 | CT_ITS ---
EXAM: CT HEAD WITHOUT INTRAVENOUS CONTRAST : 1980 CLINICAL INDICATION: head injury TECHNIQUE: Multiple axial images were obtained of the head without intravenous contrast. This CT exam was performed using one or more of the following dose reduction techniques: automated exposure control, adjustment of the mA and/or kV according to patient size, and/or use of iterative reconstruction technique. This report was created using [employer] report generation technology. COMPARISON: None. FINDINGS: BRAIN AND EXTRA-AXIAL SPACES: Unremarkable. No intra- or extra-axial hemorrhage. No evidence of acute infarct. No intracranial mass or mass effect. There is preservation of the gonzalez/white matter interface. Posterior fossa structures are unremarkable. Ventricles are appropriate for age. No hydrocephalus. Basal cisterns are patent. BONES/JOINTS: Unremarkable. No discrete lytic or blastic abnormalities. SINUSES: Unremarkable as visualized. Clear. MASTOID AIR CELLS: Unremarkable. Clear. ORBITS: Visualized globes, extraocular muscles, optic nerves and retrobulbar fat appear unremarkable. CT/Brain/Head without Contrast IMPRESSION: No acute abnormality. Individualized dose optimization techniques were used for this CT. at 1135 Reported and signed by: Qamar Medley MD Electronically Signed: Qamar Medley MD at 11:34 EDT Tel , Service support ,
--- NOTE | 2021-07-08 10:48 | CT_ITS ---
EXAM: CT CHEST WITHOUT INTRAVENOUS CONTRAST : 1980 CLINICAL INDICATION: chest wall pain TECHNIQUE: Helically acquired images were obtained of the chest without intravenous contrast. This CT exam was performed using one or more of the following dose reduction techniques: automated exposure control, adjustment of the mA and/or kV according to patient size, and/or use of iterative reconstruction technique. This report was created using [employer] report generation technology. COMPARISON: Chest radiograph February 18, 2021 FINDINGS: LUNGS AND PLEURAL SPACES: Unremarkable. No mass. No consolidation or edema. No pleural effusion or thickening. No pneumothorax. HEART: Unremarkable. Heart size is normal. No pericardial effusion. MEDIASTINUM: Unremarkable. No mediastinal or hilar adenopathy. Esophagus is unremarkable. No hiatal hernia. THYROID: Unremarkable. No thyroid lesions. BONES/JOINTS: Unremarkable. No suspicious lytic or blastic abnormality. VASCULATURE: Unremarkable. Thoracic aorta is non-dilated. GALLBLADDER AND BILE DUCTS: 2.2 cm calcified stone noted within the gallbladder. CT/Chest without Contrast IMPRESSION: 1. No acute cardiopulmonary abnormality. 2. Cholelithiasis. Individualized dose optimization techniques were used for this CT. at 1158 Reported and signed by: Qamar Medley MD Electronically Signed: Qamar Medley MD at 11:57 EDT Tel , Service support ,
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
[2021-07-08 12:24] VITALS: BP 136/78; PULSE 84; RESP 16; O2SAT 98
--- NOTE | 2021-07-08 12:25 | ED.RN ---
THIS NURSE REVIEWED D/C INSTRUCTIONS WITH PT. PT VERBALIZED UNDERSTANDING OF INSTRUCTIONS. PT DENIES FURTHER NEEDS OR QUESTIONS AT THIS TIME.
== END 2021-07-08 12:26 | disposition home or self-care (01) ==
PROVIDERS: Emergency Provider Student in an Organized Health Care Education/Training Program
DX: S06.0X9A Concussion with loss of consciousness of unspecified duration, initial encounter (principal); S16.1XXA Strain of muscle, fascia and tendon at neck level, initial encounter; S20.219A Contusion of unspecified front wall of thorax, initial encounter; V89.2XXA Person injured in unspecified motor-vehicle accident, traffic, initial encounter; Y93.9 Activity, unspecified; Y92.410 Unspecified street and highway as the place of occurrence of the external cause; F90.9 Attention-deficit hyperactivity disorder, unspecified type; Z79.1 Long term (current) use of non-steroidal anti-inflammatories (NSAID); Z87.442 Personal history of urinary calculi; K80.20 Calculus of gallbladder without cholecystitis without obstruction
CPT/HCPCS: 70450; 71250; 72125; 96372; 99282

== ENCOUNTER 2021-11-13 05:35 | Day surgery (SDC) | payer MEDICAID, SELFPAY ==
[2021-11-13] VITALS (10 sets, daily range): BP systolic 122–157; BP diastolic 81–105; PULSE 68–108; RESP 16–20; TEMP 36.2–36.7; O2SAT 91–97; BMI 35.2
--- NOTE | 2021-11-13 | FALS_PTH ---
PATIENT: MAGEN MCCORD [place] [facility] [place][id number] AGE/SX: 40/F ROOM: RE11/13/[address]: Dr. Adrianna Baker, MDDOB: 1980 BED: DIS: 11/13/2021 SPEC #: [id number] RECD: 11/13/21 14:10 STATUS: RENITA LUIS M #: [id number] STEVEN: 11/13/21 00:[address]: Adrianna Baker DEPT: SURGICAL PATHOLOGY RECD BY: Jimmy Burrows ENTERED: 11/13/21 14:10 SP TYPE: FALL TUBES OTHR DR: Katelyn Fabian NP Tissues: A - Fallopian tube B - Endometrium, NOS Procedures: Surgery Specimen Level IV HEADER OPERATION: Hysteroscopy, laparoscopic bilateral salpingectomy PRE-OP DIAGNOSIS: Abnormal uterine bleeding, endometrial polyp, sterilization TISSUE SUBMITTED: A ? Bilateral fallopian tubes, B ? Left endometrioma MICROSCOPIC DIAGNOSIS A. Bilateral fallopian tubes, bilateral salpingectomy: Bilateral fallopian tubes with endometriosis on serosal surface. B. Left endometrioma: Consistent with endometrioma. SJ:janee 11/14/2021 MICROSCOPIC DESCRIPTION Slides are reviewed. GROSS DESCRIPTION A - Received in fixative is one container labeled with the patient's name and designated bilateral fallopian tubes. The specimen consists of bilateral fallopian tubes including fimbrial ends. The fallopian tubes are received in four pieces. One of the fallopian tube measures 4.5 cm in length and 0.7 cm in diameter. The fimbrial end is identified. Sections reveal unremarkable cut surfaces. The other two segments of fallopian tube measure 3 cm in length and 0.5 cm in diameter and 0.4 cm in length and 0.5 cm in diameter. One of the segments show fimbrial end. Sections of these pieces also reveal unremarkable cut surfaces. Also present in the container are additional two smaller fragments of tissue measuring in aggregate 1 x 0.5 x 0.5 cm. The fallopian tubes are not identified as right or left. Magazine Supervisor sections are submitted in two cassettes as follows: 1 ? fallopian tube, 2 ? separate segment of fallopian tube. B - Received in fixative is one container labeled with the patient's name and designated left endometrioma. The specimen consists of a previously opened collapsed, cystic tissue measuring 4 x 3.5 x 0.5 cm. The outer surface is smooth. The cyst focally contains small amount of hemorrhagic material. The cyst wall is focally ragged. The cyst wall measures up to 0.2 cm in thickness. The entire specimen is submitted in four cassettes. / CARRIE:janee 11/13/2021 TC:5 CPT: 31705 x3
[2021-11-13 06:35] LABS: Hematocrit 32.2 % (37-47); Hemoglobin 9.9 g/dL (12.0-15.0); Mean Corp Hgb Conc 30.7 g/dL (32-36); Mean Corpuscular Hgb 24.8 pg (27.0-32.0); Mean Corpuscular Volume 80.5 fL (81-99); Mean Platelet Vol. 10.1 fl (6.2-12.0); Platelet Count 243 K/mm3 (150-450); RBC Distribution Width CV 15.9 % (11.6-14.6); RBC Distribution Width SD 45.9 fl (35.1-43.9); White Blood Count 5.5 K/mm3 (4.4-11.0)
[2021-11-13] MEDS: Lactated Ringers 1,000 ML 15 ML IV (06:52)
[2021-11-13 06:53] LABS: Internal QC Validated? YES +Cl - CLEAR BKGD; Pregnancy, Serum, hCG Quali. NEGATIVE Negative
--- NOTE | 2021-11-13 07:11 | PCM.PN.BLA ---
Progress Note I have re-examined the patient. There are no clinical changes since date of exam.
[2021-11-13] MEDS: Bupivacaine Mpf 0.5% 30 ML VIAL (07:49)
--- NOTE | 2021-11-13 08:25 | PCM.OPRPT ---
Problems Associated Problem List Diagnoses (1) Abnormal uterine bleeding (AUB): (2) Encounter for sterilization: (3) Ovarian cyst: (4) Endometriosis: (5) Pelvic adhesions: Report of Operation Date of Procedure: 11/13/21 Pre-Operative Diagnosis: AUB, sterilization request Post-Operative Diagnosis: same, Endometriosis, Left ovarian cyst, Pelvic adhesions Surgery/Procedure Performed:: Hysteroscopy, laparoscopic bilateral salpingectomy, Left ovarian cystectomy Description of Surgical Findings:: Uterine perforation appreciated on hysteroscopy. Uterus severely anteverted. Laparoscopy reviewed Severe endometriosis on Anterior and posterior culdesac, pelvic side taylor. Uterus aherant to anterior abomdinal wall. Large endometrioma noted on left ovary. Surgeon: Adrianna Baker dynamics ax technical architect: Aime Pierre Type of Anesthesia: General and Local Special Medications: 0.5% marcaine Specimen's removed: bilateral tubes, Left ovarian endometrioma Drains: none Estimated Blood Loss (mL): 10 Fluids Replaced: 800 Description of Procedure: After informed consent was obtained the patient was taken the operating room she was placed in supine position. She was prepped and draped in normal sterile fashion. At this time the bladder was drained approximately 50 cc of clear yellow urine was expelled. At this time the weighted speculum is placed in the posterior fornix of vagina single-tooth tenaculum was used to gently grasp antilipid the cervix. At this time the uterus was sounded to approximately 8 cm noted to be severely anteflexed. At this time then once dilatation was performed in incremental fashion the hysteroscope was inserted using normal saline distention medium. Upon hysteroscopy difficult to get the anterior angle and uterine perforation was appreciated. At this time the hysteroscopy was completed. Attention was then turned to the abdomen. At this time to tell clamps were placed on either side of the umbilicus and a small incision was made superior to the umbilicus and the previous surgical incision. First Marcaine was injected incision was made and under direct visualization with the visit clear trocar it was placed. Once proper placement in the intra-abdominal cavity was appreciated CO2 was used to insufflate the intra-abdominal cavity. At this time our left and right lower quadrant ports were placed. First Marcaine was injected 5 mm incision was made and the trocar was placed under direct visualization. At this time gross inspection revealed significant endometriosis in the anterior and posterior cul-de-sac as well as the pelvic taylor. A large left ovarian cyst was appreciated. The uterus was adherent to the anterior abdominal wall along with omentum. No active bleeding from uterine perforation was appreciated. At this time then the Enseal was used to coagulate and ligate along the mesosalpinx of both fallopian tubes the fallopian tubes were resected completely. The fallopian tubes were removed. At this time decision was made to remove the left ovarian cyst. Good ovarian tissue was still appreciated. At this time the cyst wall was dissected and incidental cyst rupture occurred spilling chocolate cyst fluid. At this time irrigation was performed. The cyst wall was then removed completely. The left lower quadrant port was extended to 10 mm to fit the Endo Catch bag. The cyst was placed in a 10 mm Endo Catch bag and removed without difficulty. The pelvic cavity and intra-abdominal cavity were copiously irrigated. The left ovary showed good hemostasis but Guerrero was placed over the ovarian tissue. At this time procedure was deemed complete and successful. The Raúl Armas with 0 Vicryl suture was used to close the left lower quadrant port fascia. All trochars were removed and closed with 4-0 Monocryl and Dermabond. Due to the uterine perforation 2 g of Ancef were given to the patient intraoperatively. My recommendation would be that patient follow-up with minimal invasive gynecologic surgeon for hysterectomy. Grafts/Implants Used: none Procedure Start Time: 07:49 Procedure Stop Time: 08:35 Complications uterine perforation. Admit VTE Documentation VTE Present on Admission: Yes VTE Mechan Device Prophylaxis: SCD's VTE Pharm Prophylaxis ordered?: No Reason prophylaxis not ordered:: Procedure Not Indicated
--- NOTE | 2021-11-13 08:34 | EX.PCM.DISCH ---
Discharge Instructions Procedure Other Diet Discharge Diet: No restrictions Activity May resume sexual activity in: 2 weeks Lifting Restrictions: 20-25 lbs Dressing / Incision Call your doctor if your incision/area has: Continuous Slow Oozing, Sudden Increased Bleeding, Increased Pain/ Swelling, Increased Redness, Foul Smelling Discharge and Swelling at the incision site Call your doctor if you observe: Fever of 101 or Higher, Inability to urinate, Inability to have a bowel movement, Using more than 1 pad per hour and Uncontrolled pain Additional Dressing/Incision Instructions:: You have skin glue over your incision sites, do not pick off. You may shower and let the soap and water run over the incision sites and dab dry. Follow Up Care Please Follow Up With: Adrianna Baker MD When: 1-2 weeks post OP if you need an appointment please call [phone] Test Results: Test results from this visit will be discussed in further detail at your follow-up appointment, if applicable. Discharge Plan Admission Attending Provider: Adrianna Baker Primary Care Provider: Katelyn Fabian NP Discharge Orders/Prescriptions Prescriptions: No Action dextroamphetamine-amphetamine [Adderall] 10 MG tablet 20 mg PO DAILY RF: 0 Referrals / Follow Up: Katelyn Fabian NP, TELESALES ADVISOR-C [Primary Care Provider] - Disposition Disposition (needs filled in before D/C Order can be placed): Home, Self Care
[2021-11-13] MEDS: Acetaminophen 500 MG Tablet 1000 MG PO (10:51)
== END 2021-11-13 23:59 | disposition home or self-care (01) ==
LOC: SDC 05:37 → AC 05:37
PROVIDERS: PCP Nurse Practitioner Primary Care; Referring Provider Obstetrics & Gynecology; Visit Provider Obstetrics & Gynecology
PROC: 0UB98ZZ Excision of Uterus, Via Natural or Artificial Opening Endoscopic (ICD-10-PCS; CPT 58558; principal; 2021-11-13 07:15)
DX: N93.9 Abnormal uterine and vaginal bleeding, unspecified (principal); N83.202 Unspecified ovarian cyst, left side; Z30.2 Encounter for sterilization; N73.6 Female pelvic peritoneal adhesions (postinfective); N80.2 Endometriosis of fallopian tube
CPT/HCPCS: 58661; 00840; 88302; 84703; 85027; 87426; 88305; C9803; J7120; C1760; J2405

== ENCOUNTER 2022-08-20 22:40 | Emergency (ER) | payer MEDICAID, SELFPAY ==
[2022-08-20 22:41] VITALS: BP 151/90; PULSE 110; RESP 18; TEMP 36.7; O2SAT 97; BMI 73.7
--- NOTE | 2022-08-20 23:29 | EX.ED.VIS.PS ---
HPI HPI - Psych History of Present Illness Chief Complaint: Depression Detail of Chief Complaint: Suicidal ideation. Informant: patient Onset/Context/Timing Context: Gradual Onset Timing: Continuous Current Severity: Moderate Maximum Severity: Moderate Associated Symptoms Associated Symptoms - Psych: Positive for Depressed, Hopelessness and Suicidal Thoughts; Negative for Threatening, Confusion, Paranoia, Visual Hallucinations or Auditory Hallucinations Specific plan (suicidal thought): No specific plan Narrative Narrative: 41-year-old female history of ADHD. Has had depression for some time was just started on medication today. States 2 days ago she was actually on a bridge and was going to jump and bystander stopped her but she was not evaluated at that time. She states she really has no local support system. She lives with her 18-year-old daughter. She has no family lots of help to her. She denies any prior attempts except for 2 days ago. Prior similar symptoms: No Recent Illness/Hospitalization: No PFSH PFS Medical History ADHD Anemia Anxiety Back pain Depression Heartburn History of kidney stones Hx of hemorrhoids Injury of head and neck Migraine headache Non-smoker Restless legs Home Medications dextroamphetamine-amphetamine 10 mg tablet (Adderall) 20 mg PO DAILY 06/21/16 [History Last Taken Unknown] escitalopram oxalate 10 mg tablet (Lexapro) 10 mg PO DAILY 08/20/22 [History Last Taken Unknown] Allergy/AdvReac Type Severity Reaction Status Date / Time latex Allergy Hives Verified 08/20/22 22:44 hydrocodone bitartrate AdvReac Nausea Verified 08/20/22 22:44 [From Vicodin] Family History Other COVID-19 Surgical History History of History of laparoscopic cholecystectomy Social History Smoking Status: Never smoker ROS ROS ED ROS Narrative Denies recent illness Review of Systems ROS Unobtainable: Denies due to encephalopathy Constitutional Constitutional ED: Denies chills or fever(s) Eyes Eyes: Denies blurry vision ENT ENT ED: Denies ear pain Cardiovascular Cardiovascular: Denies chest pain Respiratory/Chest Respiratory/Chest: Denies cough or dyspnea Gastrointestinal Gastrointestinal: Denies abdominal pain Genitourinary Genitourinary ED: Denies dysuria or hematuria Musculoskeletal Musculoskeletal: Denies arthralgias Integumentary Denies abscess Neurologic Neurologic: Denies headache(s) Psychiatric Psychiatric: Denies anxiety Endocrine Endocrinology: Denies polydipsia Hematologic/Lymphatic Hematologic/Lymphatic: Denies easy bleeding Allergic/Immunologic Allergic/Immunologic ED: Denies mouth swelling or tongue swelling EXAM Physical Exam Narrative Exam Narrative: 41-year-old female no acute distress. Vital signs stable afebrile. H EENT exam unremarkable. Neck nontender. Atraumatic. Lungs clear to auscultation bilaterally. Heart regular rhythm rate about 100 no murmur. Chest wall nontender. Abdomen soft nontender. Moving all 4 extremities. No track gamez. No swelling or edema. Back nontender. Neurologically she is awake and alert. No signs of toxidrome. Answering questions and following commands. Emotionally depressed. Const Vital Signs: 08/20/22 22:41 Temperature 98.0 F Temperature Source Temporal Pulse Rate 110 H Respiratory Rate 18 Blood Pressure 151/90 H Blood Pressure Mean 110 Pulse Ox 97 Oxygen Delivery Method Room Air Positive well nourished, well developed and obese; Negative for cachectic, contractures or unkempt General Appearance ED: well developed and NAD; Negative for unkempt, cachectic, contractures or pallor Nutritional Appearance: obese; Negative for cachectic HEENT Reports moist mucous membranes normocephalic and atraumatic; Negative for trauma or tenderness Eyes PERRL and EOMs intact bilaterally General Eye ED: Negative for pale conjunctiva or scleral icterus Neck no lymphadenopathy, supple and no JVD General: Negative for tenderness Resp normal respiratory effort and clear to auscultation bilaterally Effort and Inspection: Negative for retractions Auscultation: Negative for rales, rhonchi or wheezes Cardio S1 normal heart sound, S2 normal heart sound and no murmurs Palpation: Negative for other Rate: regular rate Rhythm: regular rhythm GI non-tender, non-distended and no masses Inspection: Negative for abdominal distention Auscultation: normoactive bowel sounds Palpation: soft; Negative for tender or guarding Back/Spine no CVA tenderness General Back: Negative for CVA tenderness Cervical Spine: Negative for cervical spine tenderness Thoracic Spine / Upper Back: Negative for thoracic spinal tenderness Lumbar Spine / Lower Back: Negative for lumbar spinal tenderness Coccyx: Negative for other Extremity normal to inspection General Extremety ED: Negative for edema or tenderness General Extremity: Negative for edema Neuro oriented x3 and CN's II-XII intact bilaterally Sensorium / Orientation: alert, oriented to person, oriented to place and oriented to time; Negative for orientation impaired, confused, lethargic or stuporous Motor Exam: strength 5/5 throughout Psych mental status grossly normal, thought process normal, cooperative, speech normal, activity/motor behavior normal, denies hallucinations and denies homicidal ideation; Negative for affect normal or denies suicidal ideation Appearance: grossly normal, appropriate and well kempt; Negative for unkempt, disheveled, bizarre or intubated Attitude: calm, engaged, No paranoid, No withdrawn, No bizarre, No uncooperative, No evasive, No guarded, No belligerent, No agitated, No aggressive and No hostile Activity / Motor Behavior: appropriate eye contact; Negative for psychomotor agitation, psychomotor slowing, fidgetting, hyperactive, disorganized or restless Speech: normal speech, No incoherent, No excessive, No minimal, No slow, No rapid, No soft and No loud Mood & Affect: depressed Thought Process: normal thought process and No confused Thought Content: normal thought content Memory / Cognition: memory grossly intact Insight: insight good Judgement: judgement good Skin General Skin Exam: Negative for jaundice or pallor Lesions: no lesions Rashes: no rashes Trauma: Negative for abrasion Wounds: Negative for amputation MDM MDM MDM Narrative Medical decision making narrative: 41-year-old female depressed as on a bridge 2 days ago and wanted to jump to commit suicide but was stopped by the bystanders. She has had a history of depression. Does not feel like she has much if any of the support system. ED mental health labs will be obtained. Crisis is being asked to evaluate the patient. Went back and evaluated the patient around 1:30 AM. She left without being discharged. She was pink slipped due to her statement that she went to jump off a bridge 2 days ago. Security is reviewing the security cameras. If she is nowhere to be found we will send the police to try to retrieve her. Patient was brought back by the [facility]. Crisis did evaluate her. She does not have a specific plan. There cannot do with her being discharged home. She was just started on antidepressants the other day. And she will follow-up with either them or a another mental health agency she is being seen by. Lab Data Attestation: I reviewed the patient's lab results. Lab results narrative: CBC shows white count 6.1. H&H 11.4 and 36.7. Platelets 283. This is consistent with the patient's baseline anemia. Chemistries show a gap of 8 BUN and creatinine are 13 and 1. Glucose 132. Alcohol negative. test negative. Tox screen negative except for amphetamines. Labs: Laboratory Results - last 24 hr 08/20/22 08/20/22 08/20/22 23:45 23:45 23:45 WBC 6.1 RBC 4.61 Hgb 11.4 L Hct 36.7 L MCV 79.6 L MCH 24.7 L MCHC 31.1 L RDW Std Deviation 45.9 H RDW Coeff of Theo 16.2 H Plt Count 283 MPV 10.4 Immature Gran % (Auto) 0.300 Neut % (Auto) 63.0 Lymph % (Auto) 29.7 [place] % (Auto) 6.1 Eos % (Auto) 0.7 Baso % (Auto) 0.2 Absolute Neuts (auto) 3.8 Absolute Lymphs (auto) 1.80 Nucleated RBC % 0 Sodium 142 Potassium 3.6 Chloride 109 H Carbon Dioxide 25.0 Anion Gap 8 BUN 13 Creatinine 1.07 H Estim Creat Clear Calc 60.35 Est GFR (MDRD) Af Amer 73 Est GFR (MDRD) Non-Af 60 BUN/Creatinine Ratio 12.1 Glucose 132 H Calcium 9.1 Serum , Qual Urine Opiates Screen Urine Methadone Screen Ur Barbiturates Screen Ur Phencyclidine Scrn Ur Amphetamines Screen MDMA (Ecstasy) Screen U Benzodiazepines Scrn Urine Cocaine Screen U Cannabinoids Screen Ur Drug Screen Comment Ethyl Alcohol < 3.0 08/20/22 08/20/22 23:45 23:55 WBC RBC Hgb Hct MCV MCH MCHC RDW Std Deviation RDW Coeff of Theo Plt Count MPV Immature Gran % (Auto) Neut % (Auto) Lymph % (Auto) [place] % (Auto) Eos % (Auto) Baso % (Auto) Absolute Neuts (auto) Absolute Lymphs (auto) Nucleated RBC % Sodium Potassium Chloride Carbon Dioxide Anion Gap BUN Creatinine Estim Creat Clear Calc Est GFR (MDRD) Af Amer Est GFR (MDRD) Non-Af BUN/Creatinine Ratio Glucose Calcium Serum , Qual NEGATIVE Urine Opiates Screen NEGATIVE Urine Methadone Screen NEGATIVE Ur Barbiturates Screen NEGATIVE Ur Phencyclidine Scrn NEGATIVE Ur Amphetamines Screen POSITIVE H MDMA (Ecstasy) Screen NEGATIVE U Benzodiazepines Scrn NEGATIVE Urine Cocaine Screen NEGATIVE U Cannabinoids Screen NEGATIVE Ur Drug Screen Comment Ethyl Alcohol Discharge Plan Triage Chief Complaint: Depression ED Provider: Aime Kan Dx/Rx/DC Orders Clinical Impression: Depression, Suicidal ideation Prescriptions: No Action dextroamphetamine-amphetamine [Adderall] 10 MG tablet 20 mg PO DAILY escitalopram oxalate [Lexapro] 10 mg Tablet 10 mg PO DAILY Primary Care Provider: Katelyn Fabian NP Referrals: Counseling,Center [Group of Physicians] - As soon as possible Katelyn Fabian NP, OPERATIONAL RISK ANALYST-C [Primary Care Provider] - As soon as possible Activity Restrictions/Additional Instructions: Continue your antidepressant medication. Return if you feel like you may hurt yourself or others. Follow-up with the of the counseling center or your mental health facility. Disposition Disposition: Home, Self Care
[2022-08-21 00:29] LABS: Absolute Neutrophil Count 3.8 X10^3/uL (2.0-7.7); Basophil# 0.01 X10^3/uL; Basophil% 0.2 % (0-1); Eosinophil# 0.04 X10^3/uL; Eosinophils% 0.7 % (0-5); Hematocrit 36.7 % (37-47); Hemoglobin 11.4 g/dL (12.0-15.0); Lymphocyte % 29.7 % (19-41); Mean Corp Hgb Conc 31.1 g/dL (32-36); Mean Corpuscular Hgb 24.7 pg (27.0-32.0); Mean Corpuscular Volume 79.6 fL (81-99); Mean Platelet Vol. 10.4 fl (6.2-12.0); Monocyte# 0.37 X10^3/uL; Monocyte% 6.1 % (0-10); NRBC Flagged by Analyzer 0 % (0-5); Neutrophil # 3.82 X10^3/uL (2.7-7.7); Platelet Count 283 K/mm3 (150-450); RBC Distribution Width CV 16.2 % (11.6-14.6); RBC Distribution Width SD 45.9 fl (35.1-43.9); Red Blood Count 4.61 M/mm3 (4.2-5.4); White Blood Count 6.1 K/mm3 (4.4-11.0)
--- NOTE | 2022-08-21 00:30 | NURSING ---
CALLED CRISIS AT [address] SOLIS REQUEST
[2022-08-21 00:51] LABS: Amphetamine Urine VISTA POSITIVE (<1000 ng/mL); Barbiturate Urine VISTA NEGATIVE (< 200 ng/mL); Benzodiazepine Urine VISTA NEGATIVE (< 200 ng/mL); Cocaine Urine VISTA NEGATIVE (< 300 ng/mL); Ecstacy Urine VISTA NEGATIVE (< 500 ng/mL); Methadone Urine VISTA NEGATIVE (< 300 ng/mL); PCP Urine VISTA NEGATIVE (< 25 ng/mL); THC Urine VISTA NEGATIVE (< 50 ng/mL); Vista UDS pH Range 5
[2022-08-21 00:51] LABS: Anion Gap 8 (5-15); BUN 13 mg/dL (7-18); BUN/Creat Ratio 12.1 RATIO (10-20); Calcium,Total 9.1 mg/dL (8.5-10.1); Chloride 109 mmol/L (98-107); Creatinine, Serum 1.07 mg/dL (0.55-1.02); EST Glomerular Filtration Rate 60 mL/min (>60); Est Glom Filt Rate - Afr Amer 73 mL/min (>60); Estimated Creatinine Clearance 60.35 ml/min; Glucose 132 mg/dL (74-106); Potassium 3.6 mmol/L (3.5-5.1); Sodium Level 142 mmol/L (136-145)
[2022-08-21 00:55] LABS: Internal QC Validated? YES +Cl - CLEAR BKGD; Pregnancy, Serum, hCG Quali. NEGATIVE Negative
[2022-08-21 00:57] LABS: Alcohol, Blood (Medical)-Serum < 3.0 mg/dL
--- NOTE | 2022-08-21 01:47 | ED.RN ---
This RN heard door open and close while in another room with pt. Walked out of pt room to find pt not in room. Bathrooms checked, security used cameras to determine pt had walked out of EMS doors. Talked with HRO, pt being looked for at this time.
[2022-08-21 03:34] VITALS: PULSE 65; RESP 18; TEMP 36.8; O2SAT 98
== END 2022-08-21 04:24 | disposition home or self-care (01) ==
PROVIDERS: Emergency Provider Emergency Medicine; PCP Nurse Practitioner Primary Care; Visit Provider Emergency Medicine
DX: R45.851 Suicidal ideations (principal); F32.A Depression, unspecified; F90.9 Attention-deficit hyperactivity disorder, unspecified type
CPT/HCPCS: 80048; 80307; 82077; 84703; 85025; 99282

== ENCOUNTER 2023-11-10 14:19 | Emergency (ER) | payer MEDICAID, SELFPAY ==
[2023-11-10 14:20] VITALS: BP 148/111; PULSE 81; RESP 16; TEMP 36.3; O2SAT 98
--- NOTE | 2023-11-10 14:43 | EX.ED.DYSGE1 ---
HPI History of Present Illness Chief Complaint: General Illness Detail of Chief Complaint: Patient has a constellation of symptoms. Informant: patient Onset/Context/Timing Onset: Today Context: Sudden Onset Timing: Continuous Quality: Nausea, not feeling well, headache, vomiting, orthostatic dizziness Location: Occurred while at work Current Severity: Mild Maximum Severity: Moderate Worsened by: Upright position Relieved by: Nothing Associated Symptoms Associated Symptoms: No visual, auditory symptoms. Narrative Narrative: Patient is a 42-year-old woman with history of GERD, ADHD and depression. She was seen at [facility]. She apparently received IV medication. Did not receive IV fluid. Her symptoms started this afternoon while at work. She apparently seen at [facility] and administered IV blood pressure meds because her pressure was high. She states she was seen by her doctor yesterday and her blood pressure was high. Her practitioner did not start her on antihypertensive meds. Patient complains of headache. Denies double vision, blurred vision or loss of vision. She denies ringing or ears decreased hearing. Denies trouble with speech or swallowing. She denies problems with coordination or balance. She denies paresthesia, anesthesia or motor weakness. Patient denies respiratory or cardiac symptoms. She denies hemoptysis or coffee-ground emesis. She denies black or maroon-colored stool. Prior similar symptoms: Yes Recent Illness/Hospitalization: Yes (Patient was seen earlier today at [facility] and treated with ) [facility] Medical History ADHD Anemia Anxiety Back pain CKD (chronic kidney disease) Depression GERD (gastroesophageal reflux disease) Heartburn History of kidney stones Hx of hemorrhoids Injury of head and neck Insomnia Migraine headache Non-smoker Restless legs Home Medications dextroamphetamine-amphetamine 10 mg tablet (Adderall) 20 mg PO DAILY 06/21/16 [History Last Taken Unknown] omeprazole 20 mg capsule,delayed release 20 mg PO DAILY 09/07/22 [History Last Taken Unknown] trazodone 50 mg tablet 50 mg PO DAILY 09/07/22 [History Last Taken Unknown] ondansetron 4 mg disintegrating tablet 4 mg PO Q8H PRN PRN Nausea #5 tabs 11/10/23 [Rx Last Taken Unknown] Allergy/AdvReac Type Severity Reaction Status Date / Time latex Allergy Hives Verified 11/10/23 14:23 hydrocodone bitartrate AdvReac Nausea Verified 11/10/23 14:23 [From Vicodin] Family History Father Cancer Other COVID-19 Surgical History History of History of laparoscopic cholecystectomy S/P partial hysterectomy Social History (Updated 11/10/23 @ 14:[address] Dusty Thacker MD) household members: none Smoking Status: Never smoker alcohol intake: never ROS ROS ED Constitutional Constitutional ED: Denies chills, fever(s) or subjective Eyes Eyes: Denies blurry vision, change in vision or diplopia ENT ENT ED: Denies ear pain, rhinorrhea or sore throat Cardiovascular Cardiovascular: Denies chest pain, orthopnea, palpitations or paroxysmal nocturnal dyspnea Respiratory/Chest Respiratory/Chest: Denies cough, dyspnea, dyspnea on exertion, orthopnea or paroxysmal nocturnal dyspnea Gastrointestinal Gastrointestinal: Reports abdominal pain, nausea and vomiting; Denies constipation Genitourinary Genitourinary ED: Denies dysuria, hematuria or urinary frequency Musculoskeletal Musculoskeletal: Denies arthralgias, back pain or myalgias Integumentary Denies abscess or rash Neurologic Neurologic: Denies headache(s), paresthesias or weakness Psychiatric Psychiatric: Reports depression; Denies anxiety Hematologic/Lymphatic Hematologic/Lymphatic: Reports systems reviewed and no addt'l complaints, except as documented EXAM Physical Exam Const Vital Signs: 11/10/23 14:20 11/10/23 14:32 11/10/23 15:08 Temperature 97.4 F L Temperature Source Temporal Pulse Rate 81 68 Respiratory Rate 16 14 Respiratory Effort Normal Non-Labored Respiratory Pattern Normal Blood Pressure 148/111 H Blood Pressure Mean 123 Pulse Ox 98 98 Oxygen Delivery Method Room Air Room Air Positive well nourished, well developed and obese Constitutional Narrative: Patient appears ill but not toxic. General Appearance ED: well developed and pallor; Negative for cyanotic or diaphoretic Nutritional Appearance: obese HEENT Reports dry mucous membranes HEENT Narrative: Head is atraumatic and normocephalic. Ears are normal. Nares are patent. Posterior pharynx is normal. Mouth ED: Yes dry mucous membranes Mouth: dry mucous membranes Eyes PERRL and EOMs intact bilaterally Eyes Narrative: Conjunctive appears pale. General Eye ED: Yes pale conjunctiva; Negative for scleral icterus Neck no lymphadenopathy, supple and no JVD Chest Wall inspection of chest normal and palpation of chest normal Resp normal respiratory effort and clear to auscultation bilaterally Cardio regular rate, regular rhythm, S1 normal heart sound, S2 normal heart sound and no murmurs GI normal to inspection, nondistended, normoactive bowel sounds, non-tender, non-distended and no masses; Negative for hepatosplenomegaly Back/Spine no CVA tenderness Extremity normal to inspection Extremity Narrative: There is no acral cyanosis or clubbing. General Extremety ED: Negative for edema or tenderness General Extremity: Negative for edema Neuro oriented x3, CN's II-XII intact bilaterally and no sensory deficits noted Sensorium / Orientation: alert Motor Exam: strength 5/5 throughout Psych Mood & Affect: depressed Skin no rashes or lesions noted, no wounds and No skin turgor normal General Skin Exam: elasticity normal and pallor; Negative for jaundice MDM MDM MDM Narrative Medical decision making narrative: Because patient complained of nausea and vomiting IV was established and she received IV Zofran. She also received 1 L normal saline since clinically she appears dehydrated. She does report orthostatic dizziness. Suspect she may have a viral illness. Her blood pressure is still elevated 148/111. Will obtain BMP to assess BUN and creatinine and electrolytes. Use of Clinisync was not fruitful. There are no reports available at this time with regards to her visit at [facility] earlier today. History & Record Review Discussion w/independent historian: Patient Lab Data Attestation: I reviewed the patient's lab results. Lab results narrative: Basic metabolic panel is unremarkable. Blood sugar is 105. Labs: Laboratory Results - last 24 hr 11/10/23 11/10/23 14:51 15:13 Sodium 139 Potassium 3.9 Chloride 108 H Carbon Dioxide 29.0 Anion Gap 2 L BUN 10 Creatinine 0.88 Est GFR (MDRD) Af Amer 90 Est GFR (MDRD) Non-Af 75 BUN/Creatinine Ratio 11.3 Glucose 105 Calcium 9.4 POC Glucose 105 Discharge Plan Triage Chief Complaint: General Illness ED Provider: KedarDusty Dx/Rx/DC Orders Clinical Impression: Myalgia, Orthostatic dizziness, Nausea & vomiting, Hypertension Instructions: ED Hypertension New Begin Treatment, ED Vomiting (Adult) Prescriptions: New ondansetron [ondansetron] 4 mg tablet,disintegrating 4 mg PO Q8H PRN PRN (Reason: Nausea) Qty: 5 0RF No Action omeprazole 20 mg capsule,delayed release(DR/EC) 20 mg PO DAILY trazodone 50 mg tablet 50 mg PO DAILY dextroamphetamine-amphetamine [Adderall] 10 MG tablet 20 mg PO DAILY Primary Care Provider: SARAHI MCINTYRE Referrals: Katelyn Fabian NP, METEOROLOGY INSTRUCTOR-C [Non-Staff] - 1-2 Weeks Disposition Disposition: Home, Self Care
[2023-11-10] MEDS: Ondansetron 4 MG/2 ML Vial IV (15:05)
[2023-11-10] MEDS: 0.9% Normal Saline (1000mL) 1,000 ML 1000 ML IV (15:05)
[2023-11-10 15:08] VITALS: PULSE 68; RESP 14; O2SAT 98
[2023-11-10 15:16] LABS: Anion Gap 2 (5-15); BUN 10 mg/dL (7-18); BUN/Creat Ratio 11.3 RATIO (10-20); Calcium,Total 9.4 mg/dL (8.5-10.1); Chloride 108 mmol/L (98-107); Creatinine, Serum 0.88 mg/dL (0.55-1.02); EST Glomerular Filtration Rate 75 mL/min (>60); Est Glom Filt Rate - Afr Amer 90 mL/min (>60); Glucose 105 mg/dL (74-106); Potassium 3.9 mmol/L (3.5-5.1); Sodium Level 139 mmol/L (136-145)
[2023-11-10 15:32] LABS: Bedside Glucose 105 mg/dL (74-106)
[2023-11-10 16:02] VITALS: BP 162/95; PULSE 66; RESP 16; O2SAT 98
== END 2023-11-10 16:04 | disposition home or self-care (01) ==
PROVIDERS: Emergency Provider Emergency Medicine; PCP Nurse Practitioner Adult Health; Visit Provider Emergency Medicine
DX: R11.2 Nausea with vomiting, unspecified (principal); R42 Dizziness and giddiness; I12.9 Hypertensive chronic kidney disease with stage 1 through stage 4 chronic kidney disease, or unspecified chronic kidney disease; M79.10 Myalgia, unspecified site; N18.9 Chronic kidney disease, unspecified; F90.9 Attention-deficit hyperactivity disorder, unspecified type; K21.9 Gastro-esophageal reflux disease without esophagitis; Z79.899 Other long term (current) drug therapy; Z90.710 Acquired absence of both cervix and uterus; Z90.49 Acquired absence of other specified parts of digestive tract
CPT/HCPCS: 80048; 82962; 96361; 96374; 99284; J7030; A4216; J2405

== ENCOUNTER 2025-08-24 10:00 | Outpatient (RCR) | payer OTHER, SELFPAY ==
--- NOTE | 2025-07-30 11:15 | HP.PTEVAL_ITS ---
Patient's Visit Information Visit Information Visit Information: MAGEN Fulton BA is a 44 year old F referred to Physical Therapy by Dr. Osmany Watson MD with a diagnosis of Traumatic arthropathy R anklee foot. Date of Evaluation: 07/30/25 Physical Therapist: Dylan Ivan, DPT, OCS, CSCS Visit Plan Frequency: 3x /Week Duration: 2 Months Plan: 3x/week for 8 weeks IE HEP: gastroc stretch for DF 30" 5x 2x/day, AP throughout day. Educsate on course of WC and expectations of pain. treat with instruction in and progression to I or supervision with WORK CONDITIONING ([id number]) start specific to ROM in foot and ankle adn propriaoception instruction with ankle strength toward HEP and work out to gym whole body conditioning and body mechanics. Work to being present for 2 hrs of supeervised gym work to complement HEP(visits will be 30 minutes.) Give list for gym once she is I with speeccific exercises. Subjective Subjective: R foot broke over a year ago and metal plate put in. Had to rebreak it to put metal plate in January of this year. It was painful. Also has h/o of hysterec liban and gall bladder out. Now its been 6 months. Painful still as it swells and still hurts top of R ffot. contantly with standing and walking. Sometimes goes numb with sitting on top of foot. It was broken wheen steel plate fell on it at work. Off for two years at [employer] and does not want to go back, no longer a job there. Wants to go back to whatever she can go back to, will discuss with plumbing warehouse helper once WC over with. Went hiking over the weekend adn it made it worse. 1 mile and had to go back. No other exercises at home. PT in [place] helped a bit Sleep is OK. Lives with dtr adn fiance. Basic ADLs are getting done just painful. Frequent breaks. Hobbies: bowling and walking. Will be a grandma soon. doctr told her pain could last a year or more. Pain R foot: Pain Intensity (Out of 10): 0 Pain Intensity Range: 0 and 7 Objective Objective: Walks into PT I 300 feet to eval room but limps on R, avoids push off and rotates that leg outward to avoid DF. I gait. Traser chair and bed I today. steps up reciprocally with one rail. Down onto R only due to missing DF ROM in R not being able to be plant leg. Pain with standing and ambulation 05/13 immediately, 0 at rest but feeels numb. Heel raises able b ut painful 06/13, toe raises with holding on 06/13, all pian on top of R foot. AROM R ankle -6 DF to 55 PF, 14 inversion and 6 eversion(L is 34 inv and 19 eversion and 3 DF.) PROM R foot -2 DF, 18 inv and 10 eversion. Metatarsals are stiff on R vs L. big toe has ROM WNL on R but weak ext 4- vs 4+ L, flexion 4 B. DF R 4-, PF 4, eversion 4-, ev 4- all have pain top of foot 05/13. L is 5/5 knee strngth 4/5 R adn 4+ L, ROM B WFL. Hips strength is 3 on R hip ext and abd and 3+ on L. flexion 3+ R and L. UE strength 4/5 without yotomal problms. UE aROM WFL. Core sdtrength is 3+ abs and xt, instability in core needing to stab with UEE in sitting hip flexion testing and showing contralateral IR at femur B. Sensation LE WNL to gross light touch exccept top R foot seems numby to touch. reflxes 1/3 B patella dn achilles Swelling apparent moderately in R Metatarsal area. pain with palpation 06/13 poking top of metatarsal on R foot. Balance/Special Test Scores Functional Gait Assessment Score: 23 % Disability: 23.3400 Lower Extremity Functional Score: 22 TUG Test Time Seconds: 9 Goals Goal 1:: 2 DF R in order to walk more normally Goal Time Frame: 6-8 Weeks Goal 2:: Up and down steps without rail reciprocally Goal Time Frame: 6-8 Weeks Goal 3:: I approrpiate gym program to work toward return to work Goal Time Frame: 6-8 Weeks Goal 4:: Pt feel pain and mobility 75% better Goal Time Frame: 6-8 Weeks Goal 5:: 42 LEFS score to show improved tolerance and mob ility. Goal Time Frame: 6-8 Weeks Rehabilitation Potential Physical Therapy Diagnosis: stiffness, weaknes and pain in R foot and ankle limiting fucniton and work ability. Rehabilitation Potential: Fair Anticipated Interventions Patient/Client Instruction: Educate patient on: Condition and Benefits of Fitness Program For the Purpose of:: To improve nutrient delivery to tissue, To increase tolerance to activity/condition/position and To improve ability of physical actions for home/community/work/leisure Comment: Work conditioning including whole body strength adn body mechanics, DF ROM, propriroception and gait for R foot. For the Purpose of:: To decrease pain, To improve muscle performance and motor function, To increase tolerance to activity/condition/position, To improve ability of physical actions for home/community/work/leisure and To improve gait and locomotor functions Text: Thank you for the opportunity to evaluate your patient. For Medicare and Medicare HMO plans, please review the plan of care and approve it. It will need to be FAXED BACK to us at [phone] for Medicare purposes. For Medicare only, by signing this I certify the plan of care. Please let me know if there are questions or concerns regarding this plan of care. Physician Signature: Date:_
--- NOTE | 2025-08-24 10:12 | HP.PTDCSUM ---
Discharge Summary D/C summary: It has been my pleasure to treat MAGEN Fulton BA referred by Dr. Osmany Watson MD, with the diagnosis of Traumatic arthropathy R anklee foot for a total of 10 visit(s). Discharge Date: 08/24/25 Please see the following information for a summary of their discharge status. Subjective Subjective: Ready to be done, will look ofr home halth work. Ready to do that. Pain this week is 0 today and is getting more normal. Walking is better with less limping. steps are no problem. I will keep walking. Pain R foot: Pain Intensity (Out of 10): 7 Overall Improvement % Improvement: 100 Objective Objective/Function: stes reciprocally without rail and no compensation. Walking without antalgia. good ROM to 3 Df and strength ankle 4+/5 Overall doing better and feels rady to be don adn does not wish to come back which is appropriate with her objectiv nd subjctive today. Goals Goal 1:: 2 DF R in order to walk more normally Goal Progress: Goal Met Goal 2:: Up and down steps without rail reciprocally Goal Progress: Goal Met Goal 3:: I approrpiate gym program to work toward return to work Goal Progress: home nly Goal 4:: Pt feel pain and mobility 75% better Goal Progress: Goal Met Goal 5:: 42 LEFS score to show improved tolerance and mob ility. Goal Progress: Goal Met Plan Plan: d/c D/C Information d/c sentence: If there are questions or concerns regarding this patient's physical therapy, please feel free to call me at [phone]. Thank you for the referral of this patient. Sincerely, Dylan Ivan, DPT, OCS, CSCS Balance/Gait/Functional tests Balance/Special Test Scores Functional Gait Assessment Score: 23 % Disability: 23.3400 Lower Extremity Functional Score: 22 TUG Test Time Seconds: 9 Tug Test: <10 sec.=free mobile Improvement % Improvement: 100
== END 2025-08-24 19:00 | disposition home or self-care (01) ==
LOC: PT 10:00
PROVIDERS: PCP Nurse Practitioner Adult Health; Referring Provider Orthopaedic Surgery; Visit Provider Orthopaedic Surgery
DX: M12.571 Traumatic arthropathy, right ankle and foot (principal)
CPT/HCPCS: 97161; 97545